=== PATIENT | female | born 1945 | race Caucasian/White ===

== ENCOUNTER 2019-06-04 11:55 | Emergency (ER) | payer MEDICARE ==
[~2019-06-04] VITALS: Ht 152.4 cm; Wt 54.4 kg
[2019-06-04] MEDS ORDERED: ASA81BEC PO (12:12)
[2019-06-04] MEDS ORDERED: NEXIUM20 M1 PO (12:12)
[2019-06-04] MEDS ORDERED: PROAIR HFA8.5 GM INH (12:12)
[2019-06-04] MEDS ORDERED: COZAAR 25 MG TA25 M1 PO (12:13)
[2019-06-04] MEDS ORDERED: LORATIDINE 10 M10 M1 PO (12:13)
[2019-06-04] MEDS ORDERED: SUPER THERAVIT1 EACH PO (12:13)
[2019-06-04] MEDS ORDERED: FLONASE 0.05%50 MCG NARES (12:13)
[2019-06-04] MEDS ORDERED: BENEFIBER1 EAC1 PO (12:14)
[2019-06-04] MEDS ORDERED: RESTASIS1 EACH OPHTHALMIC (12:14)
[2019-06-04] MEDS ORDERED: SIMVASTATIN80 MG PO (12:14)
[2019-06-04 12:36] LABS: URINE BILIRUBIN NEGATIVE (Negative); URINE BLOOD 2+ (Negative); URINE CLARITY CLEAR; URINE COLOR YELLOW; URINE GLUCOSE-RANDOM NEGATIVE (Negative); URINE KETONES NEGATIVE (Negative); URINE LEUKOCYTES-REFLEX NEGATIVE (Negative); URINE NITRITE-REFLEX NEGATIVE (Negative); URINE PROTEIN NEGATIVE (Negative); URINE UROBILINOGEN 0.2 E.U./dl (0.2-1.0)
[2019-06-04 12:47] LABS: BACTERIA-REFLEX 1-9 Few /HPF (None Seen); CASTS None Seen /LPF (None Seen); CRYSTALS None Seen /LPF (None Seen); MUCUS None Seen strn/LPF (None Seen); SQUAMOUS 0-3 Few /LPF (0-3); URINE RBC 3-10 Few /HPF (0-2); URINE WBC-REFLEX 0-5 Rare /HPF (0-5)
[2019-06-04 13:03] LABS: ABSOLUTE LYMPHOCYTES 0.5 thou/uL (0.8-5.3); ABSOLUTE MONOCYTES 0.3 thou/uL (0.0-1.2); ABSOLUTE NEUTROPHILS 1.9 thou/uL (1.6-8.1); BASOPHILS 0.4 %; EOSINOPHILS 0.1 %; HEMATOCRIT 37.8 % (37.0-47.0); HEMOGLOBIN 13.1 gm/dL (12.0-15.0); LYMPHOCYTES 16.9 %; MCH 29.9 pg (26.0-34.0); MCHC 34.6 g/dL (28.0-37.0); MCV 86.3 fL (80.0-100.0); MONOCYTES 12.8 %; MPV 8.1 fl. (7.2-11.1); NUCLEATED RBCS 0 /100WBC; PLATELET COUNT* 165 thou/uL (150-400); POLYS 69.8 %; RBC 4.38 mil/uL (4.20-5.00); RDW-CV 12.7 % (10.5-14.5); WBC 2.7 thou/uL (4.0-11.0)
[2019-06-04 13:10] LABS: CALCIUM 8.1 mg/dL (8.5-10.1); CREATININE 0.9 mg/dL (0.6-1.3)
[2019-06-04] MEDS ORDERED: K-DUR 20 MEQ T20 MEQ PO (13:23)
[2019-06-04] MEDS ORDERED: KLOR-CON 10 ER10 MEQ PO (13:34)
[2019-06-04 14:11] VITALS: BP 133/68
--- NOTE | 2019-06-04 15:48 | EKG ---
[place] [address] ELECTROCARDIOGRAM REPORT Name: LISAYADIRA MCCOLLUM Room: [facility]#: [id number] Admission: 06/04/19 Attend Phys: Discharge: 06/04/19 Date of : 45 Date of Service: 06/04/19 1352 Report #: [id number] THIS REPORT FOR: //name// [facility] ED Test Date: 2019-06-04 Test Time: 13:52:36 Pat Name: YADIRA GONZALEZ Department: Room: Gender: F Pharmacy Laboratory Technician: TERRY : 1945 Requested By: Johan Vargas Order Number: [id number] MD: Jerrell Perez Measurements Intervals [place] Rate: 69 P: 64 [place]: 162 QRS: 13 QRSD: 71 T: 56 QT: 427 QTc: 458 Interpretive Statements Sinus rhythm Abnormal R-wave progression, early transition No previous ECG available for comparison Electronically Signed On 06-04-2019 15:46:52 CDT by Jerrell Perez [email or web address] <ELECTRONICALLY SIGNED> By: Jerrell Perez MD, [facility] 06/04/19 1546 1352 1352 Jerrell Perez MD, FACC /EPI
== END 2019-06-04 14:11 | disposition home or self-care (01) ==
LOC: M.ERS 11:55
PROVIDERS: Nurse Practitioner Psychiatric/Mental Health
DX: B34.9 Viral infection, unspecified (principal); E87.6 Hypokalemia; E87.1 Hypo-osmolality and hyponatremia; R31.21 Asymptomatic microscopic hematuria; K21.9 Gastro-esophageal reflux disease without esophagitis; E78.00 Pure hypercholesterolemia, unspecified; J45.909 Unspecified asthma, uncomplicated; Z88.1 Allergy status to other antibiotic agents; Z88.2 Allergy status to sulfonamides